=== PATIENT | female | born 1935 | race Caucasian/White ===

== ENCOUNTER → 2022-10-25 13:54 | Outpatient (BNVA) | payer MEDICARE, SELFPAY | PROVIDERS: PCP Family Medicine; Visit Provider Podiatrist Foot & Ankle Surgery | DX: M19.071 Primary osteoarthritis, right ankle and foot (principal); M19.072 Primary osteoarthritis, left ankle and foot; S92.912A Unspecified fracture of left toe(s), initial encounter for closed fracture; X58.XXXA Exposure to other specified factors, initial encounter; L90.9 Atrophic disorder of skin, unspecified; M77.40 Metatarsalgia, unspecified foot; M79.2 Neuralgia and neuritis, unspecified | CPT/HCPCS: 73630; 99204 ==

== ENCOUNTER → 2022-11-28 12:57 | Outpatient (BNVA) | payer MEDICARE, SELFPAY | PROVIDERS: PCP Family Medicine; Visit Provider Podiatrist Foot & Ankle Surgery | DX: S92.912A Unspecified fracture of left toe(s), initial encounter for closed fracture (principal); X58.XXXA Exposure to other specified factors, initial encounter; L90.9 Atrophic disorder of skin, unspecified; M19.072 Primary osteoarthritis, left ankle and foot; M79.671 Pain in right foot | CPT/HCPCS: 73630; 99213 ==

== ENCOUNTER 2023-03-02 13:53 | Outpatient (CLI) | payer MEDICARE, SELFPAY ==
--- NOTE | 2023-03-02 14:04 | MM_ITS ---
WS: [id number] BILATERAL 3D TOMOSYNTHESIS DIGITAL DIAGNOSTIC MAMMOGRAPHY WITH CAD CLINICAL INFORMATION: N64.4 - Mastodynia HISTORY: RIGHT breast pain COMPARISON: 02/17/2022 TECHNIQUE: Bilateral CC, MLO, and ML views. FINDINGS: Scattered fibroglandular densities bilaterally. New spiculated suspicious lesion upper outer quadrant RIGHT breast best seen on the MLO view near the chest wall. This measures approximately 1.8 x 1.6 cm suspicious for neoplasm. Ultrasound is pending and will be described below. Punctate and lucent centered calcifications. LEFT breast is unchanged from previous. ULTRASOUND BREAST RIGHT TECHNIQUE: Ultrasound right breast focused area of concern. CLINICAL INFORMATION: N64.4 - Mastodynia FINDINGS: Ultrasound RIGHT breast upper outer quadrant. At the 9 o'clock position, posterior depth, 5 cm from t he nipple near the chest wall, there is a dense hypoechoic lesion measuring 2.3 x 1.7 x 1.4 cm. Recom mend further evaluation with ultrasound-guided biopsy. No abnormal lymph nodes visualized in the RIGH T axilla. IMPRESSION: MM/[place] [id number] BI-RADS: 4-Suspicious Finding-Biopsy Should Be Considered FOLLOW UP: US Guided Biopsy Recommended Recommend ultrasound-guided biopsy of the RIGHT breast lesion
--- NOTE | 2023-03-02 14:30 | US_ITS ---
WS: [id number] BILATERAL 3D TOMOSYNTHESIS DIGITAL DIAGNOSTIC MAMMOGRAPHY WITH CAD CLINICAL INFORMATION: N64.4 - Mastodynia HISTORY: RIGHT breast pain COMPARISON: 02/17/2022 TECHNIQUE: Bilateral CC, MLO, and ML views. FINDINGS: Scattered fibroglandular densities bilaterally. New spiculated suspicious lesion upper outer quadrant RIGHT breast best seen on the MLO view near the chest wall. This measures approximately 1.8 x 1.6 cm suspicious for neoplasm. Ultrasound is pending and will be described below. Punctate and lucent centered calcifications. LEFT breast is unchanged from previous. ULTRASOUND BREAST RIGHT TECHNIQUE: Ultrasound right breast focused area of concern. CLINICAL INFORMATION: N64.4 - Mastodynia FINDINGS: Ultrasound RIGHT breast upper outer quadrant. At the 9 o'clock position, posterior depth, 5 cm from t he nipple near the chest wall, there is a dense hypoechoic lesion measuring 2.3 x 1.7 x 1.4 cm. Recom mend further evaluation with ultrasound-guided biopsy. No abnormal lymph nodes visualized in the RIGH T axilla. IMPRESSION: US/US breast RT limited* [id number] BI-RADS: 4-Suspicious Finding-Biopsy Should Be Considered FOLLOW UP: US Guided Biopsy Recommended Recommend ultrasound-guided biopsy of the RIGHT breast lesion
== END 2023-03-02 13:54 | disposition home or self-care (01) ==
PROVIDERS: PCP Family Medicine; Visit Provider Obstetrics & Gynecology
DX: N64.4 Mastodynia (principal); R92.8 Other abnormal and inconclusive findings on diagnostic imaging of breast
CPT/HCPCS: 76642; 77062; G0279

== ENCOUNTER 2023-03-15 12:56 | Outpatient (CLI) | payer MEDICARE, SELFPAY ==
--- NOTE | 2023-03-15 13:02 | US_ITS ---
WS: [id number] ULTRASOUND-GUIDED RIGHT BREAST BIOPSY HISTORY: Abnormal mammogram and ultrasound. COMPARISON: 03/02/2023 Procedure, risks and complications are explained to the patient. Medications are reviewed. Consent is obtained. The mass in the RIGHT breast is localized with ultrasound. Mass localizes to 9:00, 5 cm from the nipp le. Skin is cleansed with ChloraPrep and anesthetized with 1% buffered lidocaine. Small dermatome is made. Under sterile conditions mass is biopsied with a 14-gauge Achieve needle. Multiple core biopsie s are performed. Material placed in formalin and sent to pathology for review. No complications encou ntered. Breast tissue marker (Bard ultrasound enhanced ribbon): Single. Patient left the radiology suite with no complications. Patient is instructed to return to [facility] or [facility] with any concerns. IMPRESSION: 1. Uncomplicated core needle biopsy RIGHT breast mass at 9:00. 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 Maximum diameter is 5 mm. Breast cancer prognostic profile is pending. RECOMMENDATION: Follow-up with breast surgeon and oncology.
[2023-04-11 08:13] LABS: Breast Profile ER,PR,HER2,Ki-6 See Report
== END 2023-03-15 12:57 | disposition home or self-care (01) ==
PROVIDERS: PCP Family Medicine; Visit Provider Obstetrics & Gynecology
DX: C50.811 Malignant neoplasm of overlapping sites of right female breast (principal); R92.8 Other abnormal and inconclusive findings on diagnostic imaging of breast
CPT/HCPCS: 19083; 88305; 88361; 88374

== ENCOUNTER → 2023-03-27 08:49 | Outpatient (BNVA) | payer MEDICARE, SELFPAY | PROVIDERS: PCP Family Medicine; Visit Provider Surgery | DX: N64.59 Other signs and symptoms in breast (principal); C50.919 Malignant neoplasm of unspecified site of unspecified female breast | CPT/HCPCS: 99205 ==

== ENCOUNTER 2023-04-05 09:41 | Day surgery (SDC) | payer MEDICARE, SELFPAY ==
[2023-04-04 14:46] VITALS: BMI 28.3
[2023-04-05] VITALS (7 sets, daily range): BP systolic 136–153; BP diastolic 63–99; PULSE 66–90; RESP 16–18; TEMP 36.2–36.4; O2SAT 93–95
--- NOTE | 2023-04-05 | US_ITS ---
WS: [id number] ULTRASOUND-GUIDED RIGHT BREAST NEEDLE LOCALIZATION. CLINICAL INFORMATION: rt breast mass COMPARISON: 03/15/2023 FINDINGS: The procedure including risks, benefits, and complications were discussed with the patient who agreed to proceed. Using sterile technique patient was prepped and draped in the usual sterile fashion. Aft er 1% lidocaine utilizing real-time ultrasound guidance a 7 cm Kopan's needle was advanced into the R IGHT breast lesion at the 9 o'clock position 5 cm from the nipple.No immediate complications. Ultrasound of the RIGHT breast surgical specimen demonstrates gross total resection with resection of the localization needle intact. Findings communicated to Breast surgeon. IMPRESSION: 1. Uncomplicated ultrasound-guided RIGHT breast needle localization. 2. Specimen ultrasound demonstrates gross total resection of the lesion with intact wire. 3. Follow-up with breast surgery and oncology as directed. US/US breast surgical specimen BI-RADS: 6-Known Biopsy-Proven Malignancy FOLLOW UP: See Report
--- NOTE | 2023-04-05 06:29 | P.HPUD_ITS ---
Surgery/Procedure H&P Update DATE OF PROCEDURE: April 05, 2023 DATE H&P PERFORMED: 03/27/23 H&P UPDATE INFORMATION: I have reviewed H&P completed within last 30 days, I have examined patient prior to procedure, No changes to prior documentation and H&P is in [facility] EMR on date indicated PLANNED PROCEDURE: Operation Date: 04/05/23 11:15 Proposed Procedures p [id number] right breast needle localized mass excision R92.8,C50.919(Right) - Chaitanya Benton MD s sentinal lymph node biopsy with needle insertion of radiological correlation(Right) - Chaitanya Benton MD
--- NOTE | 2023-04-05 10:30 | US_ITS ---
WS: [id number] ULTRASOUND-GUIDED RIGHT BREAST NEEDLE LOCALIZATION. CLINICAL INFORMATION: rt breast mass COMPARISON: 03/15/2023 FINDINGS: The procedure including risks, benefits, and complications were discussed with the patient who agreed to proceed. Using sterile technique patient was prepped and draped in the usual sterile fashion. Aft er 1% lidocaine utilizing real-time ultrasound guidance a 7 cm Kopan's needle was advanced into the R IGHT breast lesion at the 9 o'clock position 5 cm from the nipple.No immediate complications. Ultrasound of the RIGHT breast surgical specimen demonstrates gross total resection with resection of the localization needle intact. Findings communicated to Breast surgeon. IMPRESSION: 1. Uncomplicated ultrasound-guided RIGHT breast needle localization. 2. Specimen ultrasound demonstrates gross total resection of the lesion with intact wire. 3. Follow-up with breast surgery and oncology as directed. US/[place] [id number] BI-RADS: 6-Known Biopsy-Proven Malignancy FOLLOW UP: See Report
--- NOTE | 2023-04-05 11:38 | P.ANESASSM_ITS ---
Pre-Anesthetic Assessment Height/Weight: Height 1.5 m Weight 63.503 kg O2 Del Method Room Air 04/05/23 11:16 Operation Date: 04/05/23 11:15 Proposed Procedures p [id number] right breast needle localized mass excision R92.8,C50.919(Right) - Chaitanya Benton MD s sentinal lymph node biopsy with needle insertion of radiological aron elation(Right) - Chaitanya Benton MD Familial anesthetic complications: none Was Beta Chasidy taken within 24 hours: N/A Was Clonidine taken within 24 hours: N/A Last intake: Intake Last Liquid Date 04/04/23 Last Liquid Time 19:00 Last Solid Date 04/04/23 Last Solid Time 19:00 Social No alcohol and No tobacco Exam alert, oriented x 3, clear to auscultation bilaterally and regular rate & rhythm Airway Submandibular: within normal limits Cervical ROM: within normal limits Mallampati: Class II History/ROS No significant history except as noted Anesthetic Plan ASA status: 1 Anesthesia: General Medications/Allergies Home Medications Medication Instructions Recorded Confirmed Last Taken Type calcium carbonate 600 mg-vitamin 1 cap PO DAILY 04/20/20 04/04/23 04/04/23 History D3 10 mcg (400 unit) capsule hyoscyamine sulfate 0.125 mg tablet 0.125 mg PO TID PRN Allergic 04/20/20 04/04/23 04/03/23 History Symptoms multivitamin 1 tab PO DAILY 04/20/20 04/04/23 04/04/23 History omega-3 fatty acids 1,000 mg 2,000 mg PO DAILY 04/20/20 04/04/23 04/04/23 History capsule estradiol 0.05 mg/24 hr semiweekly 1 patch topical .2x weekly #24 ea 09/08/22 04/04/23 04/01/23 Rx transdermal patch (Vivelle-Dot) cetirizine 10 mg tablet (Zyrtec) 10 mg PO DAILY PRN Allergy Symptoms 01/25/23 04/04/23 Unknown History Allergies Allergy/AdvReac Type Severity Reaction Status Date / Time amoxicillin [From Amoxil] Allergy Diarrhea, Verified 03/27/23 09:10 nausea codeine Allergy Diarrhea, Verified 03/27/23 09:10 Nausea erythromycin base Allergy Diarrhea, Verified 03/27/23 09:10 nausea gabapentin [From Neurontin] Allergy nausea Verified 03/27/23 09:10 Sulfa (Sulfonamide Allergy Diarrhea, Verified 03/27/23 09:10 Antibiotics) nausea tramadol Allergy nausea Verified 03/27/23 09:10 [facility] Anesthesia Medical History Arthritis hands Basal cell carcinoma Basal cell of the cheek treated in 1974. Basal cell of the nose treated in 1989 Basal cell of her back treated in 2012. Celiac disease Disorder of sciatic nerve intermittent Diverticulosis Has had a history of diverticulitis and has had a partial colon resection for treatment. 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 1989 Nose. 1974 Right cheek. 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 Olivier at [facility] in [place], [place] S/P partial resection of colon (~1996) With right salpingo-oophorectomy. S/P sacrocolpopexy (07/15/03) Abdominal sacrocolpopexy, REI, Enterocele repair, Kendrick urethropexy, Paravaginal repair, Posterior repair, Anal sphincteroplasty, Cystoscopy with suprapubic catheter insertion. Performed by Dr. Edge at [facility] in [place], [place] Family History Mother Stroke Father Stroke Other Family history of premature coronary artery disease Denies family history of Colon cancer Ovarian cancer Diabetes Breast cancer Hypertension Uterine cancer Thyroid disease Social History (Updated 03/27/23 @ 09:20 by ZEYNEP Diop) Smoking and tobacco status: never smoked Alcohol intake: current Alcohol intake frequency: holidays/special occasions only Substance/Drug Use: never Data Anesthesia Cardiac Studies: No Data to Display
[2023-04-05] MEDS: sodium chloride 0.9% 1,000 ML 30 ML IV (11:47)
[2023-04-05] MEDS: ceFAZolin 2,000 MG in sodium chloride 0.9% (plus) 50 ML 100 MG IV (12:26)
[2023-04-05] MEDS: isosulfan blue 10 mg/mL SDV 5mL SUBCUT (12:40)
[2023-04-05] MEDS: lidocaine-epi 1% 20 mL INJ 10 ML INJECTION ×2 (14:20)
--- NOTE | 2023-04-05 14:44 | SUR.OPER ---
[id number] UPDATED DAUGHTER VIA CELL PHONE [phone] UPDATED DAUGHTER VIA CELL PHONE
--- NOTE | 2023-04-05 14:50 | P.OP_ITS ---
Operative Report Date of procedure: April 05, 2023 Pre-op diagnosis: Right breast cancer Post-op diagnosis: Same Procedure done: Right breast needle localized lumpectomy, right axillary sentinel lymph node biopsy Specimens removed/disposition: Right axilla nodes, right breast mass, superior margin of right breast mass, inferior margin of right breast mass, lateral margin of right breast mass, inferior margin of right breast mass. Surgeon: Chaitanya Benton MD Tactical Air Control Party Manager: [facility] OR Staff Estimated blood loss: 20 Complications: None Findings: [place] lymph nodes negative for cancer Brief History: 87-year-old female with right breast cancer verified by biopsy. Presents for lumpectomy and sentinel lymph node biopsy after extensive discussion of the risk and benefits of the operation as documented in my clinic note. Patient present ed to the hospital early in the morning, went to radiology to get nuclear medicine radiotracer administration and needle localization with ultrasound. Procedure: Patient was brought into the OR, she was placed in the supine position, general esthesia with LMA was given. 4 cc of blue dye was injected in the breast tissue around the area of the lesion. The breast was massaged for 10 minutes. The right chest and axilla was prepped and draped in the usual sterile fashion. A 5 cm incision was made in the right breast lateral region about 1 cm from the areolar margin. This incision corresponded to the area of the mass. Incision was deepened until the superficial breast fascia was opened, I then created flaps in the superior inferior medial and lateral directions. The mass was elevated with towel clamps, the mass was circumferentially dissected taking care. Consideration of including the tip of the wire into the dissection area. The wire was then pulled inside of the wound and the mass was excised with the wire in place. The mass was labile short superior long lateral with silk. Mass was sent to radiology for confirmation, radiological marker was confirmed. I then proceeded to excise the circumferential margins around the previous area of excision in order to ensure complete excision of the cancer from the patient. Additional specimens were sent to pathology marked as superior margin, inferior margin, medial margin and lateral margin. The cavity was irrigated, hemostasis was achieved. The wound was closed in layers using oncoplastic principles. I used #3-0 Vicryl for the subcutaneous and breast tissue and #4 Monocryl for the skin. Mentation was then placed on the right axilla, gamma probe was used to identify the area of maximum signal. At 3 cm incision was then made at this level. The incision was deepened to the level of the clavipectoral fascia, the clavipectoral fascia was then opened sharply. Gamma probe was used to notify the sentinel node, node was also noted to be blue due to the dye. The node was excised with blunt dissection, including nearby node that also had good level of radiotracer uptake. After excision no residual radioactive activity was noted at the level of the cavity. Nodes were sent for frozen section. Frozen section was negative for cancer. Therefore I decided to proceed with closure of the wound. The wound was irrigated, hemostasis obtained and the wound was closed in layers using #3-0 Vicryl for the clavipectoral fascia and subcutaneous tissue and #4-0 Monocryl for the skin. Steri-Strips were applied on the wounds, sterile dressing were applied. At the end of the procedure all counts were correct. The patient tolerated well the procedure, was extubated and transferred to the PACU in stable condition.
[2023-04-05] MEDS: fentaNYL 50 mcg/mL INJ 2mL IVP (15:57)
--- NOTE | 2023-04-05 16:42 | ANE.PACU2 ---
Inpatient post-anesthesia follow up: Airway intact: Yes Vital signs: Temperature 97.6 F Pulse Rate 77 Respiratory Rate 18 Blood Pressure 153/91 Pulse Oximetry 94 Oxygen Delivery Me thod Room Air Oxygen Flow Rate Fraction of Inspir ed Oxygen Hydration adequate: Yes Nausea and vomiting: No Pain level: 2 Mental status: Baseline
== END 2023-04-05 16:50 | disposition home or self-care (01) ==
PROVIDERS: PCP Family Medicine; Visit Provider Surgery
PROC: (CPT 19120; principal; 2023-04-05 11:05)
PROC: (CPT 19301; 2023-04-05 11:05)
DX: C50.911 Malignant neoplasm of unspecified site of right female breast (principal)
CPT/HCPCS: 19301; 38500; 19285; 88307; 88331; C1889; J0360; J0690; J1100; J2405; J2704; J3010; J3490; J7030; Q9968

== ENCOUNTER → 2023-04-13 14:39 | Outpatient (BNVA) | payer MEDICARE, SELFPAY | PROVIDERS: PCP Family Medicine; Visit Provider Surgery | DX: C50.919 Malignant neoplasm of unspecified site of unspecified female breast (principal) | CPT/HCPCS: 99024 ==

== ENCOUNTER 2023-04-18 10:48 | Oncology outpatient (recurring) (ONCR) | payer MEDICARE, SELFPAY | END 2023-05-09 23:59 | disposition home or self-care (01) | LOC: ONCMED 10:48 | PROVIDERS: PCP Family Medicine; Visit Provider Internal Medicine Medical Oncology | DX: C50.411 Malignant neoplasm of upper-outer quadrant of right female breast (principal); Z17.0 Estrogen receptor positive status [ER+]; Z79.899 Other long term (current) drug therapy | CPT/HCPCS: 99205 ==

== ENCOUNTER → 2023-05-11 13:57 | Outpatient (BNVA) | payer MEDICARE, SELFPAY | PROVIDERS: PCP Family Medicine; Visit Provider Surgery | DX: C50.411 Malignant neoplasm of upper-outer quadrant of right female breast (principal); Z98.890 Other specified postprocedural states | CPT/HCPCS: 99024 ==

== ENCOUNTER 2023-05-29 13:05 | Oncology outpatient (recurring) (ONCR) | payer MEDICARE, SELFPAY ==
--- NOTE | 2023-05-29 15:22 | N.ONRAD NP_ITS ---
Radiation Oncology New Patient Visit Patient: Elsa Feliciano MR#: [id number] : 1935> Age: 88> Sex: Female> Dictated by: James Gomez Date of Service: 05/29/2023 Referring Physician(s) : Bong Gutierrez MD; Helen Mccain MD Diagnosis: C50.111 - malignant neoplasm of central portion of right female breast, Diagnosed 03/15/2023 (active). Breast, right, invasive ductal carcinoma, stage [id number], ER 95%, MS 40%, HER2 negative and Ki-67 20% Radiotherapy to date: Summary > No prior radiation therapy. Chief Complaint / History of Present Illness: Mrs. Feliciano presented with right breast pain. She was referred for diagnostic imaging. She had a mass present in the upper outer quadrant of the right breast. Ultrasound showed a suspicious lesion in the same area. A biopsy showed grade 1 invasive ductal carcinoma. The prognostic panel is noted above. She chose breast conservation and underwent a lumpectomy with sentinel node biopsy. The pathology showed a grade 2 invasive ductal cancer measuring 18 mm. The tumor extended to within less than a millimeter of the deep margin of excision. Additional excision of margins was performed, though it was not specifically stated that the deep margin was reexcised. Axillary sentinel lymph nodes were negative. Mrs. Feliciano has seen Dr. Gutierrez and hormonal therapy is recommended. He indicated she can be followed without radiation. This recommendation is based on 2 trials that show that women over 65 with less than 3 cm cancers, hormone receptor positivity, and margins greater than 1 mm may be followed. They have a higher local recurrence rate but equal survival. Mrs. Lara is referred for evaluation. Current Medications: acetaminophen 500 mg PO QID PRN calcium carbonate-vitamin D3 600 mg-10 mcg (400 unit) 1 cap PO DAILY cetirizine (Zyrtec) 10 mg PO DAILY PRN estradiol (Vivelle-Dot) 1 patch topical .2x weekly hyoscyamine sulfate 0.125 mg PO TID PRN loratadine (Claritin) 10 mg PO DAILY PRN multivitamin 1 tab PO DAILY omega-3 fatty acids 2,000 mg PO DAILY Allergies: amoxicillin [From Amoxil] Allergy (Verified 04/18/23 11:01) Diarrhea, nausea codeine Allergy (Verified 04/18/23 11:01) Diarrhea, Nausea erythromycin base Allergy (Verified 04/18/23 11:01) Diarrhea, nausea gabapentin [From Neurontin] Allergy (Verified 04/18/23 11:01) nausea Sulfa (Sulfonamide Antibiotics) Allergy (Verified 04/18/23 11:01) Diarrhea, nausea tramadol Allergy (Verified 04/18/23 11:01) nausea Medical History: No history of collagen vascular disease. No previous radiation therapy. Surgical History: H/O basal cell carcinoma excision (~01/2013) 01/2013 Back. 1989 Nose. 1974 Right cheek. H/O breast biopsy (~1986) Right breast, benign H/O varicose vein ligation and stripping (~1967) Bilateral History of lumpectomy of right breast 04/05/23 right breast needle localized lumpectomy, right axillary sentinel lymph node bx- Dr. Benton Hx of colonoscopy 10 yrs ago S/P excision of Aponte's neuroma 1982 Left foot 1986 Right foot S/P hysterectomy (~1982) With left salpingo-oophorectomy S/P knee replacement (~04/2018) Left knee; Dr. Olivier at [facility] in [place], [place] S/P partial resection of colon (~1996) With right salpingo-oophorectomy. S/P sacrocolpopexy (07/15/03) Abdominal sacrocolpopexy, REI, Enterocele repair, Kendrick urethropexy, Paravaginal repair, Posterior repair, Anal sphincteroplasty, Cystoscopy with suprapubic catheter insertion. Performed by Dr. Edge at [facility] in [place], [place] Family History: MotherStroke FatherStroke Other Family history of premature coronary artery disease Denies family history of Colon cancer Ovarian cancer Diabetes Breast cancer Hypertension Uterine cancer Thyroid disease Social History: Smoking and tobacco status: never smoked Alcohol intake: current Alcohol intake frequency: holidays/special occasions only Substance/Drug Use: never Current Complaints / Review of Systems: . Vital Signs: Performed on 05/29/2023 1:18 PM BMI - 24.924 kg/m2 (high), Height - 64 in, Weight - 145.2 lbs, Temperature - 97. f, Pulse - 95 /min, Respiration - 18 /min, O2 Sat - 96 %, Pain - 0, Fatigue - 0 and BP - 169/ 106 mm(hg)(high). Physical Exam: General: Alert, oriented, no acute distress.Neck : Supple. No masses. No cervical or supraclavicular lymphadenopathy. Lungs: Normal to percussion. On auscultation no rales, rhonchi, or wheezes.Heart: Regular rhythm. No murmur, gallop, or rub.Breasts: The left breast is normal in appearance and free of masses. The right breast has an excellent cosmetic result. The incision is well-healed. In the tumor bed there is no mass, nodularity, or swelling. No evidence of infection. The remainder of the breast is normal to palpation.Abdomen: No distention. No organomegaly, mass, or tenderness.Musculoskeletal: No bone tenderness. Normal gait. Performance Status: KPS 80 Pathology: Primary, c50.111 - malignant neoplasm of central portion of right female breast, Diagnosed 03/15/2023 (active). Impression: Mrs. Feliciano has undergone a lumpectomy and sentinel node biopsy for carcinoma of the breast. She will receive hormonal therapy. Based on 2 studies that are noted above, she probably does not need radiation. The only question is whether she has a greater than 1 mm margin deep in the breast. I discussed this issue with your with her. I discussed a typical course of hypofractionated radiation delivered over 4 weeks. I discussed the side effects and possible complications. Mrs. Feliciano asked to be given some extra time to think the situation over and also to attend her granddaughter's wedding. I told her that would be acceptable. She will try to come to a decision about radiation by the end of June or early July. The main issue is whether she is willing to accept the local recurrence rate of 10% versus 1 to 2%. She is fully aware that survival is not affected. Plan: She will consider our discussion and make a decision in the next month about whether she wishes to proceed with radiation. Signed by: 05/29/2023 3:21:09 PM <<Signature on File>> Time spent with patient: CPT Code: CPT Code:
== END 2023-06-08 23:59 | disposition home or self-care (01) ==
PROVIDERS: PCP Family Medicine; Visit Provider Internal Medicine Medical Oncology
DX: C50.411 Malignant neoplasm of upper-outer quadrant of right female breast (principal); Z17.0 Estrogen receptor positive status [ER+]
CPT/HCPCS: 77080; 99205

== ENCOUNTER 2023-05-29 14:24 | Outpatient (CLI) | payer MEDICARE, SELFPAY ==
--- NOTE | 2023-05-29 15:30 | XR_ITS ---
WS: [id number] DEXA (DUAL ENERGY X-RAY ABSORPTIOMETRY) Bone mineral density was performed using a [employer] machine. HISTORY: preassessment prior to AI therapy COMPARISON: None available. Lumbar spine BMD (L1-L4): 1.583 g/cm2 T score: 3.4 Z score: 5.4 Total hip BMD: Left: 1.048 g/cm2. T score: 0.3 Z score: 2.8 Right: 1.014 g/cm2. T score: 0.1 Z score: 2.5 10 year probability of a major osteoporotic fracture is 9.8%. IMPRESSION: NORMAL BONE MINERAL DENSITY based upon the WHO classification for females.
== END 2023-05-29 14:25 | disposition home or self-care (01) ==
LOC: RAD 14:24
PROVIDERS: PCP Family Medicine; Visit Provider Radiology Radiation Oncology
DX: C50.411 Malignant neoplasm of upper-outer quadrant of right female breast (principal)
CPT/HCPCS: 77080

== ENCOUNTER 2023-06-13 10:49 | Oncology outpatient (recurring) (ONCR) | payer MEDICARE, SELFPAY ==
[2023-06-13 10:55] VITALS: BP 149/91; PULSE 107; RESP 16; TEMP 36.9; O2SAT 98
[2023-06-13 11:06] LABS: Basophils % 0.6 %; Eosinophils % 0.3 %; Hematocrit 39.2 % (36-47); Lymphocytes # 1.2 10^3/uL (0.8-4.8); Lymphocytes % 31.9 %; Mean Corpuscular HGB Conc 33.2 g/dL (30-55); Mean Corpuscular Hemoglobin 31.4 pg (27-33); Mean Corpuscular Volume 94.7 fl (85-98); Mean Platelet Volume 9.4 fL (7.4-10.4); Monocytes # 0.4 10^3/uL (0.2-0.9); Monocytes % 11.7 %; Neutrophils # 1.99 10^3/uL (1.8-7.7); Neutrophils % 55.2 %; Nucleated Red Blood Cells % 0 %; Platelet Count 198 10^3/cmm (157-399); Red Blood Count 4.14 10^6/uL (3.85-5.65); Red Cell Distribution Width 12.1 % (12.1-15.1)
[2023-06-13 11:26] LABS: Alanine Aminotransferase 19 U/L (0-33); Albumin Level 4.2 g/dL (3.5-5.2); Alkaline Phosphatase 57 U/L (35-105); Anion Gap 12.9 (5-19); Aspartate Amino Transferase 27 U/L (0-32); Blood Urea Nitrogen 16 mg/dL (8-23); Calcium 10.1 mg/dL (8.5-10.5); Carbon Dioxide 26 mmol/L (22-29); Chloride 102 mmol/L (98-107); Globulin 2.7 g/dL (1.3-4.6); Glucose 94 mg/dL (65-115); Osmolality Calculated 285 mOsm/kg (285-295); Potassium 3.9 mmol/L (3.5-5.1); Sodium 137 mmol/L (136-145); Total Bilirubin 0.4 mg/dL (0.15-1.2); Total Protein 6.9 g/dL (6.6-8.7)
== END 2023-07-09 23:59 | disposition home or self-care (01) ==
LOC: ONCMED 10:50
PROVIDERS: Nurse Practitioner Family; PCP Family Medicine; Visit Provider Internal Medicine Medical Oncology
DX: C50.411 Malignant neoplasm of upper-outer quadrant of right female breast (principal); Z17.0 Estrogen receptor positive status [ER+]; Z79.899 Other long term (current) drug therapy
CPT/HCPCS: 36415; 80053; 85025; 99214

== ENCOUNTER → 2023-08-16 14:06 | Outpatient (BNVA) | payer MEDICARE, SELFPAY | PROVIDERS: PCP Family Medicine; Visit Provider Surgery | DX: R92.8 Other abnormal and inconclusive findings on diagnostic imaging of breast (principal); C50.411 Malignant neoplasm of upper-outer quadrant of right female breast | CPT/HCPCS: 99214 ==

== ENCOUNTER 2023-10-05 10:46 | Outpatient (CLI) | payer MEDICARE, SELFPAY ==
--- NOTE | 2023-10-05 10:57 | MM_ITS ---
WS: [id number] BILATERAL 3D TOMOSYNTHESIS DIGITAL DIAGNOSTIC MAMMOGRAPHY WITH CAD CLINICAL INFORMATION: ABNORMAL INCONCLUSIVE FINDINGS HISTORY: RIGHT breast lumpectomy COMPARISON: 03/02/2023 TECHNIQUE: Bilateral CC, MLO, and ML views. FINDINGS: The breasts are composed of heterogeneous fibroglandular density, which can limit the detection of sm all underlying mass lesions. Interval postoperative changes resection of the posterior RIGHT breast l esion. Parenchymal fibrosis about the lumpectomy cavity. No suspicious lesions. Incidental dystrophic and lucent centered calcifications. LEFT breast is unchanged and unremarkable. No suspicious focal mass, asymmetry, calcifications, or architectural distortion. No evidence of silverio gnancy. IMPRESSION: MM/[place] [id number] BI-RADS: 2-Benign FOLLOW UP: 1 Year Follow-up Recommend return to annual diagnostic mammography.
== END 2023-10-05 10:47 | disposition home or self-care (01) ==
LOC: RAD 10:46
PROVIDERS: PCP Family Medicine; Visit Provider Surgery
DX: R92.2 Inconclusive mammogram (principal); R92.333 Mammographic heterogeneous density, bilateral breasts; R92.323 Mammographic fibroglandular density, bilateral breasts
CPT/HCPCS: 77062; 99213; G0279

== ENCOUNTER 2023-10-05 13:06 | Oncology outpatient (recurring) (ONCR) | payer MEDICARE, SELFPAY | END 2023-10-08 23:59 | disposition home or self-care (01) | PROVIDERS: PCP Family Medicine; Visit Provider Internal Medicine Medical Oncology | DX: C50.411 Malignant neoplasm of upper-outer quadrant of right female breast (principal); Z17.0 Estrogen receptor positive status [ER+]; Z79.899 Other long term (current) drug therapy; I69.354 Hemiplegia and hemiparesis following cerebral infarction affecting left non-dominant side | CPT/HCPCS: 99214 ==

== ENCOUNTER → 2023-11-15 13:20 | Outpatient (BNVA) | payer MEDICARE, SELFPAY | PROVIDERS: PCP Family Medicine; Visit Provider Surgery | DX: R92.8 Other abnormal and inconclusive findings on diagnostic imaging of breast (principal); C50.411 Malignant neoplasm of upper-outer quadrant of right female breast | CPT/HCPCS: 99213 ==

== ENCOUNTER 2024-01-04 13:04 | Oncology outpatient (recurring) (ONCR) | payer MEDICARE, SELFPAY | END 2024-01-07 23:59 | disposition home or self-care (01) | PROVIDERS: PCP Family Medicine; Visit Provider Internal Medicine Medical Oncology | DX: C50.411 Malignant neoplasm of upper-outer quadrant of right female breast (principal); Z17.0 Estrogen receptor positive status [ER+]; I69.354 Hemiplegia and hemiparesis following cerebral infarction affecting left non-dominant side | CPT/HCPCS: 99214 ==

== ENCOUNTER 2024-02-14 09:48 | Oncology outpatient (recurring) (ONCR) | payer MEDICARE, SELFPAY ==
--- NOTE | 2024-02-14 10:00 | MM_ITS ---
WS: [id number] DIAGNOSTIC BILATERAL DIGITAL BREAST TOMOSYNTHESIS MAMMOGRAPHY WITH CAD HISTORY: bilateral breast pain COMPARISON: 10/05/2023, 03/02/2023, 01/15/2022 TECHNIQUE: Bilateral craniocaudad, mediolateral oblique, and mediolateral views are submitted with to mosclaudia and SM. Computer aided detection utilized. Breast composition: There are scattered areas of fibroglandular density. Prior lumpectomy RIGHT breas t. Benign calcifications in each breast. No suspicious masses. No distortion. MM/[place] [id number] IMPRESSION: BI-RADS: 0-Incomplete: Need additional imaging evaluation FOLLOW UP: Need Additional Imaging No mammographic abnormality identified. As the patient is complaining of bilate ral noncyclical breast pain ultrasound should be performed in the areas of pain .
== END 2024-03-09 23:55 | disposition home or self-care (01) ==
LOC: RAD 09:48 → ONCMED 02-22 11:50
PROVIDERS: PCP Family Medicine; Visit Provider Internal Medicine Medical Oncology
DX: C50.411 Malignant neoplasm of upper-outer quadrant of right female breast (principal); Z17.0 Estrogen receptor positive status [ER+]; Z79.899 Other long term (current) drug therapy; I69.354 Hemiplegia and hemiparesis following cerebral infarction affecting left non-dominant side; N64.4 Mastodynia
CPT/HCPCS: 77062; G0279

== ENCOUNTER 2024-04-04 10:25 | Oncology outpatient (recurring) (ONCR) | payer MEDICARE, SELFPAY ==
--- NOTE | 2024-03-19 14:45 | US_ITS ---
WS: [id number] ULTRASOUND BILATERAL BREASTs HISTORY: breast pain abnormal mammo COMPARISON: Mammogram 02/14/2024 TECHNIQUE: 2-D and Doppler. There are scattered areas of fibroglandular density. Ultrasound RIGHT breast and axilla with no abnor mality identified. Ultrasound LEFT breast from 4-6 o'clock in the area of pain. No abnormality. US/US breast BI complete [id number] IMPRESSION: BI-RADS: 2 - Benign. FOLLOW-UP: 1 Year Follow-up
[2024-04-04 10:15] LABS: Basophils % 1.3 %; Eosinophils % 0.9 %; Hematocrit 39.2 % (36-47); Lymphocytes # 1.2 10^3/uL (0.8-4.8); Lymphocytes % 38.4 %; Mean Corpuscular HGB Conc 31.9 g/dL (30-55); Mean Corpuscular Hemoglobin 30.3 pg (27-33); Mean Corpuscular Volume 95.1 fl (85-98); Mean Platelet Volume 10.3 fL (7.4-10.4); Monocytes # 0.5 10^3/uL (0.2-0.9); Monocytes % 15.1 %; Nucleated Red Blood Cells % 0 %; Platelet Count 158 10^3/cmm (157-399); Red Blood Count 4.12 10^6/uL (3.85-5.65); Red Cell Distribution Width 12.7 % (12.1-15.1); White Blood Count 3.18 10^3/uL (3.29-11.43)
[2024-04-04 10:34] LABS: Alanine Aminotransferase 21 U/L (0-33); Albumin Level 4.1 g/dL (3.5-5.2); Alkaline Phosphatase 70 U/L (35-105); Anion Gap 12.6 (5-19); Aspartate Amino Transferase 31 U/L (0-32); Blood Urea Nitrogen 20 mg/dL (8-23); Calcium 9.6 mg/dL (8.5-10.5); Carbon Dioxide 28 mmol/L (22-29); Chloride 109 mmol/L (98-107); Globulin 2.8 g/dL (1.3-4.6); Glucose 93 mg/dL (65-115); Osmolality Calculated 302 mOsm/kg (285-295); Potassium 4.6 mmol/L (3.5-5.1); Sodium 145 mmol/L (136-145); Total Bilirubin 0.6 mg/dL (0.15-1.2); Total Protein 6.9 g/dL (6.6-8.7)
== END 2024-04-08 23:59 | disposition home or self-care (01) ==
PROVIDERS: Nurse Practitioner Family; PCP Family Medicine; Visit Provider Internal Medicine Medical Oncology
DX: C50.411 Malignant neoplasm of upper-outer quadrant of right female breast (principal); R92.321 Mammographic fibroglandular density, right breast
CPT/HCPCS: 36415; 76641; 80053; 85025